=== PATIENT | male | born 1995 | race Caucasian/White ===

== ENCOUNTER 2017-08-18 19:59 | Emergency (ER) | payer OTHER ==
[~2017-08-18] VITALS: Ht 175.3 cm; Wt 79.4 kg
[~2017-08-18 19:59] MED LIST: NOHOMEMEDICATIONS; TOBREX5 ML OPHTHALMIC
[2017-08-18] MEDS ORDERED: POLYMYXIN B/TMP10 ML OPHTHALMIC (20:27)
[2017-08-18 20:33] VITALS: BP 152/78
== END 2017-08-18 20:33 | disposition home or self-care (01) ==
LOC: M.ERS 19:59
DX: T15.92XA Foreign body on external eye, part unspecified, left eye, initial encounter (principal); Z87.891 Personal history of nicotine dependence; W45.8XXA Other foreign body or object entering through skin, initial encounter; Y93.89 Activity, other specified; Y92.89 Other specified places as the place of occurrence of the external cause; Y99.8 Other external cause status

== ENCOUNTER 2018-03-31 17:34 | Emergency (ER) | payer OTHER ==
[~2018-03-31] VITALS: Ht 175.3 cm; Wt 72.6 kg
[~2018-03-31 17:34] MED LIST changes: +POLYMYXIN B/TMP10 ML OPHTHALMIC
[2018-03-31] MEDS ORDERED: ERYTHROMYCIN E3.5 G2 OPHTHALMIC (18:26)
[2018-03-31 18:38] VITALS: BP 127/67
== END 2018-03-31 18:39 | disposition home or self-care (01) ==
LOC: M.ERS 17:34
DX: S05.01XA Injury of conjunctiva and corneal abrasion without foreign body, right eye, initial encounter (principal); X58.XXXA Exposure to other specified factors, initial encounter; Y93.89 Activity, other specified; Y92.89 Other specified places as the place of occurrence of the external cause; Y99.8 Other external cause status